=== PATIENT | male | born 1955 | race Two or more races ===

== ENCOUNTER 2018-06-09 19:32 | Inpatient (IN) | payer SELFPAY ==
[~2018-06-09] VITALS: Ht 170.2 cm; Wt 59.0 kg
[2018-06-09] MEDS ORDERED: KEPPRA750 MG ORAL (19:39)
[2018-06-09] MEDS ORDERED: CRESTOR20 MG ORAL (19:39)
[2018-06-09] MEDS ORDERED: AMLODIPINE BESYL5 MG ORAL (19:39)
[2018-06-09] MEDS ORDERED: TRAMADOL HCL50 MG ORAL (19:39)
[2018-06-09 19:40] VITALS: BP 116/84
--- NOTE | 2018-06-09 19:40 | NUR ---
ED Nurse Note: Pt MOMODarshan, coming from [facility] for pain and swelling on right knee, 11/01. Pain described as aching, non-radiating. Pt fell last saturday.
[2018-06-09 21:25] LABS: BASOPHILS % (AUTO) 1.3 % (0.0-2.0); EOSINOPHILS % (AUTO) 1.6 % (0.0-3.0); HEMATOCRIT 45.8 % (42.0-52.0); HEMOGLOBIN 15.7 G/DL (14.2-18.0); LYMPHOCYTES % (AUTO) 28.8 % (20.0-45.0); MEAN CORPUSCULAR VOLUME 92 FL (80-99); MONOCYTES % (AUTO) 7.7 % (1.0-10.0); NEUTROPHILS % (AUTO) 60.6 % (45.0-75.0); PLATELET COUNT 169 K/UL (150-450); RED CELL DISTRIBUTION WIDTH 11.4 % (11.6-14.8); WHITE BLOOD COUNT 9.2 K/UL (4.8-10.8)
[2018-06-09 21:26] LABS: INR 0.9 (0.9-1.1)
[2018-06-09 21:40] LABS: ALANINE AMINOTRANSFERASE 28 U/L (12-78); ALBUMIN 4.2 G/DL (3.4-5.0); ALKALINE PHOSPHATASE 75 U/L (46-116); ANION GAP 14 mmol/L (5-15); ASPARTATE AMINO TRANSFERASE 34 U/L (15-37); BILIRUBIN,TOTAL 0.8 MG/DL (0.2-1.0); BLOOD UREA NITROGEN 33 mg/dL (7-18); CALCIUM 10.5 MG/DL (8.5-10.1); CARBON DIOXIDE 32 MMOL/L (21-32); CHLORIDE 99 MMOL/L (98-107); CREATININE 1.2 MG/DL (0.55-1.30); SODIUM 145 MMOL/L (136-145)
[2018-06-09 21:41] LABS: POTASSIUM 2.5 MMOL/L (3.5-5.1)
--- NOTE | 2018-06-09 22:36 | Emergency Room Report ---
History of Present Illness General Chief Complaint: Multiple Trauma/Fall Source: Patient, Medical Record Present Illness HPI This patient presents from a intermediate facility. He is status post fall. He complains of pain in his right knee. He has no other complaints. Allergies: Coded Allergies: PENICILLINS (Verified Allergy, Unknown, 06/09/18) Patient History Past Medical History: see triage record, old chart reviewed, HTN, OK, CAD, dementia, seizures, other - HLP Social History: Denies: smoking, alcohol use, drug use Reviewed Nursing Documentation: PMH: Agreed; PSxH: Agreed Nursing Documentation-PMH Past Medical History: No History, Except For Hx Seizures: Yes Review of Systems All Other Systems: negative except mentioned in HPI Physical Exam Vital Signs Date Time Temp Pulse Resp B/P (MAP) Pulse Ox O2 Delivery O2 Flow Rate FiO2 06/09/18 19:34 97.9 94 16 116/84 96 Room Air Sp02 EP Interpretation: reviewed, normal General Appearance: no apparent distress, alert, GCS 15, non-toxic Head: normocephalic, atraumatic Eyes: bilateral eye normal inspection, bilateral eye PERRL ENT: hearing grossly normal, normal pharynx, no angioedema, normal voice Neck: full range of motion, supple/symm/no masses Respiratory: chest non-tender, lungs clear, normal breath sounds, no respiratory distress, no retraction, no accessory muscle use, speaking full sentences Cardiovascular #1: regular rate, rhythm, no edema Gastrointestinal: normal bowel sounds, non tender, soft, non-distended, no guarding, no rebound Rectal: deferred Musculoskeletal: back normal, tender - +pain w/ ROM of R. knee. +pain in R. knee with ROM of R. hip. R. leg externally rotated at the hip. Neurologic: alert, oriented x3, responsive, motor strength/tone normal, sensory intact, speech normal Psychiatric: judgement/insight normal, memory normal, mood/affect normal, no suicidal/homicidal ideation Skin: warm/dry, well hydrated, other - See RN skin exam Medical Decision Making Diagnostic Impression: Primary Impression: Hip fracture, right ER Course This patient has an intertrochanteric fracture of the right hip. The patient's pain and symptoms are in the right knee, however there is no evidence of any fracture in the right knee. I will obtain a CT given how tender the right knee is on examination. Regardless, this patient will be admitted for ORIF of his right hip intertrochanteric fracture. Laboratory Tests Test 06/09/18 20:50 White Blood Count 9.2 K/UL (4.8-10.8) Red Blood Count 5.00 M/UL (4.70-6.10) Hemoglobin 15.7 G/DL (14.2-18.0) Hematocrit 45.8 % (42.0-52.0) Mean Corpuscular Volume 92 FL (80-99) Mean Corpuscular Hemoglobin 31.5 PG (27.0-31.0) H Mean Corpuscular Hemoglobin Concent 34.3 G/DL (32.0-36.0) Red Cell Distribution Width 11.4 % (11.6-14.8) L Platelet Count 169 K/UL (150-450) Mean Platelet Volume 9.8 FL (6.5-10.1) Neutrophils (%) (Auto) 60.6 % (45.0-75.0) Lymphocytes (%) (Auto) 28.8 % (20.0-45.0) Monocytes (%) (Auto) 7.7 % (1.0-10.0) Eosinophils (%) (Auto) 1.6 % (0.0-3.0) Basophils (%) (Auto) 1.3 % (0.0-2.0) Prothrombin Time 9.5 SEC (9.30-11.50) Prothrombin Time INR 0.9 (0.9-1.1) PTT 29 SEC (23-33) Sodium Level 145 MMOL/L (136-145) Potassium Level 2.5 MMOL/L (3.5-5.1) *L Chloride Level 99 MMOL/L (98-107) Carbon Dioxide Level 32 MMOL/L (21-32) Anion Gap 14 mmol/L (5-15) Blood Urea Nitrogen 33 mg/dL (7-18) H Creatinine 1.2 MG/DL (0.55-1.30) Estimate Glomerular Filtration Rate > 60 mL/min (>60) Glucose Level 135 MG/DL (74-106) H Calcium Level 10.5 MG/DL (8.5-10.1) H Total Bilirubin 0.8 MG/DL (0.2-1.0) Aspartate Amino Transferase (AST) 34 U/L (15-37) Alanine Aminotransferase (ALT) 28 U/L (12-78) Alkaline Phosphatase 75 U/L (46-116) Total Protein 8.3 G/DL (6.4-8.2) H Albumin 4.2 G/DL (3.4-5.0) Globulin 4.1 g/dL Albumin/Globulin Ratio 1.0 (1.0-2.7) CT/MRI/US Diagnostic Results CT/MRI/US Diagnostic Results : Imaging Test Ordered: CT head Impression No acute findings. Specifically no intracranial bleed, mass effect or edema. See official report. Last Vital Signs Date Time Temp Pulse Resp B/P (MAP) Pulse Ox O2 Delivery O2 Flow Rate FiO2 06/09/18 19:34 97.9 94 16 116/84 96 Room Air Disposition: ADMITTED INPATIENT Condition: Serious Scripts Enoxaparin* (LOVENOX*) 40 Mg/0.4 Ml Inj 40 MG SUBQ DAILY for 7 Days, #10 UNITS Prov: Domenico Thomas MD 06/14/18 Carolyn Perry DO Jun 09, 2018 22:36
[2018-06-10] VITALS (15 sets, daily range): BP systolic 115–159; BP diastolic 69–88
--- NOTE | 2018-06-10 01:30 | NUR ---
ED Nurse Note: Report given to nursing staff in 3E. Pt resting comfortably, shows no signs of acute distress. Belongings list done. Pt sent up with air analysis technician.
--- NOTE | 2018-06-10 01:40 | NUR ---
Received report from REEMA Leyva RN. Admitted patient to room 309-2 via [facility]. Bed in low position, locked and side rails up x2, padded for seizure precautions. Oriented to room and call light. No complaints of pain at this time. SL in RH, intact. Will continue to monitor.
[2018-06-10] MEDS ORDERED: Morphine Sulfate 2mg/ml Inj(IV/IM USE ONLY) IVP PRN ×2 (02:15→06:15)
[2018-06-10] MEDS ORDERED: traMADol 50mg tab ORAL PRN ×2 (02:15→08:15)
[2018-06-10] MEDS: NovoLOG Insulin Flexpen SUBQ SCH ×4 (06:38→21:00)
[2018-06-10 07:46] LABS: ANION GAP 12 mmol/L (5-15); BLOOD UREA NITROGEN 35 mg/dL (7-18); CALCIUM 9.8 MG/DL (8.5-10.1); CARBON DIOXIDE 30 MMOL/L (21-32); CHLORIDE 103 MMOL/L (98-107); POTASSIUM 2.9 MMOL/L (3.5-5.1); SODIUM 145 MMOL/L (136-145)
[2018-06-10] MEDS ORDERED: Sodium Chloride for KCL Premix X 4hrs IV SCH (09:00)
--- NOTE | 2018-06-10 09:50 | Diagnostic Imaging Report ---
Indication: Rt knee pain Technique: Continuous helical imaging of the right knee was performed in the transaxial plane. Coronal 2-D reformatted images were also generated. Study obtained in a Siemens Sensation [address] total DLP: 356.22 mGycm CTD/vol: 15.26 mGy Comparison: None Findings: There is no evidence of an acute fracture or significant malalignment identified on this examination. The bones are diffusely osteopenic. There is narrowing of the joint space and osteophyte formation in all 3 compartments consistent with arthrosis. No definite joint effusion identified. Soft tissues are unremarkable. Impression: Negative examination for acute injury. Osteoarthritis. [facility] has communicated the preliminary results to the Emergency Department. Their findings are largely concordant with this report. The CT scanner at [facility] is accredited by the [employer] and the scans are performed using dose optimization techniques as appropriate to a performed exam including Automatic Exposure control.
--- NOTE | 2018-06-10 09:53 | Diagnostic Imaging Report ---
Indication: Hip pain Technique: continuous helical imaging in the transaxial plane was performed from the iliac crests to the pubic symphysis with attention to the right hip. Coronal 2-D reformatted images were also generated. Study obtained in a Siemens Sensation [address] total DLP: 302.47 mGycm CTD/vol: 9.38 mGy Comparison: None Findings: There is an acute comminuted fracture of the intertrochanteric aspect of the right hip. Slight impaction noted. Soft tissue swelling noted. No other acute fractures are seen. There are defects within portions of the right iliac bone which may be related to previous biopsy. Correlate clinically. Calcium noted within the iliac arteries and lower aorta. Bilateral inguinal hernias containing fat demonstrated. IMPRESSION: Acute intertrochanteric fracture of the right hip. [facility] has communicated the preliminary results to the Emergency Department. Their findings are largely concordant with this report. The CT scanner at [facility] is accredited by the [employer] and the scans are performed using dose optimization techniques as appropriate to a performed exam including Automatic Exposure control.
--- NOTE | 2018-06-10 10:00 | NUR ---
Social Service Note SW met with patient to address patient's refusal of surgery for right hip fracture. Patient is alert, oriented and verbally responsive. Patient spoke with his sister and MD and continues to refuse surgery. SW spoke with Susy Daley who states patient was ambulatory and used a crutch on right side. Patient prior history of prior surgery on right knee. If patient is unable to ambulate he would not be able to return to facility. Facility provided SW the phone number of his SW who [facility] Michelle Campos [phone]. CARLOS spoke with Michelle who states she will be able to meet with patient tomorrow to encourage patient to have surgery. Michelle is a SW through [employer]. Patient with a prior history of homelessness. Michelle is also unaware as to why patient's medi-cheo has been terminated. CARLOS will discuss with medi-cheo EW. Will monitor and follow up. Addendum: 06/11/18 at 0823 by TIGRE NATHAN SW requested for primary nurse to provide written materials to patient regarding procedure. Patient was thankful for information and would read information to make a decision.
--- NOTE | 2018-06-10 10:31 | Diagnostic Imaging Report ---
Indication: Headache. Trauma Technique: Contiguous 5 mm thick transaxial imaging of the head obtained in a Siemens Sensation [address] scanner. Soft tissue and bone windows generated. Automatic Exposure Control was utilized. Total Dose length Product (DLP): 1376.[address] Dose Index Volume (CTDIvol): 70.38 mGy Comparison: none Findings: There is moderate prominence of the ventricles, basal cisterns, and cerebral sulci consistent with atrophy. Moderate, nonspecific, white matter hypoattenuation is noted throughout the brain consistent with chronic small vessel disease. There is no midline shift, edema, acute hemorrhage, mass effect, or abnormal extra-axial fluid collections. There is an old right zygomatic arch fracture. Impression: No acute intracranial bleed, mass effect or edema. Moderate atrophy of the brain. Evidence of chronic small vessel disease involving white matter tracts. Old right zygomatic arch fracture The CT scanner at [facility] is accredited by the [employer] and the scans are performed using dose optimization techniques as appropriate to a performed exam including Automatic Exposure control.
--- NOTE | 2018-06-10 12:10 | Diagnostic Imaging Report ---
Indications: hip pain Findings: Two views of the right hip were obtained. There is an acute intertrochanteric fracture of the right hip. Some varus angulation noted. IMPRESSION: Acute right intertrochanteric fracture
--- NOTE | 2018-06-10 12:37 | Diagnostic Imaging Report ---
Indication: Pain 2 views of the right knee were obtained. Findings: Bones are osteopenic. There is no obvious acute fracture. There is an old fracture of the proximal tibia noted. No definite joint effusion identified. IMPRESSION: Limited evaluation showing no obvious acute injury
--- NOTE | 2018-06-10 12:39 | NUR ---
NURSE NOTES: received patient laying on bed alert oriented with out no distress. with R.hip fx. no neuro deficit previous surgery scarring noted on R.leg. Patient refused to sign consent for recommended surgery MD. sterling. PRAKASH Castro notified she called to the patient and talk to him he still refused to sign he stating he doesn't have no pain and he had surgery before as well and he doesn't want one now. social service consult recommended by Dr. shaheen Torres, RN came and spoke to the patient still refused. and psych consult requested Dr. Burton notified. Dr. Thomas and anesthesiologist aware the situation.
--- NOTE | 2018-06-10 12:44 | NUR ---
CASE MANAGEMENT:REVIEW 62 YR OLD MALE BIBA FROM [facility] CC: FELL ON SATURDAY. PAIN AND SWELLING SI: RT HIP FRACTURE 97.9 94 16 116/84 96% ON K-2.5 IS:KCL [address] HEAD XRAY HIP AND KNEE CT HIP AND KNEE : MED/SURG STATUS 3 EAST INTERQUAL CRITERIA MET
--- NOTE | 2018-06-10 12:44 | Diagnostic Imaging Report ---
Indication: pain Pelvic trauma and pain COMPARISON: 06/09/2018 Findings: Single AP view of the pelvis and two-view right hip was performed. There is no change. Acute right intertrochanteric hip fracture again demonstrated. There is an exostosis in the area just above the right anterior superior iliac spine. IMPRESSION: Acute right intertrochanteric hip fracture
--- NOTE | 2018-06-10 13:15 | NUR ---
RADIOLOGY DEPT., CHEST X-RAY DONE.-P.DYE
--- NOTE | 2018-06-10 13:16 | NUR ---
RADIOLOGY DEPT., X-RAYS OF PELVIS, HIP AND FEMUR COMPLETE BY TECH. EDDIE WILLIS.LUIGI
[2018-06-10] MEDS ORDERED: Bacitracin 50000 Units Vial ONE (16:40)
[2018-06-10] MEDS ORDERED: EPINEPHrine 1mg/1ml Amp ONE (16:40)
[2018-06-10] MEDS ORDERED: Bupivacaine 0.25% Inj 30ml INJ ONE (16:40)
--- NOTE | 2018-06-10 16:57 | NUR ---
NURSE NOTES: Dr. Burton cam and spoke to the patient Dr. jamison aware regarding psych evaluation and patient request to eat Dr. jamison stated he will come and talk to the patient. Potassium order completed. will continue to monitor.
[2018-06-10] MEDS ORDERED: Midazolam 2mg/2ml Inj ONE (18:44)
[2018-06-10] MEDS ORDERED: Propofol 200mg/20ml IV ONE (18:45)
--- NOTE | 2018-06-10 19:15 | History and Physical Report ---
DATE OF ADMISSION: 06/09/2018 HISTORY OF PRESENT ILLNESS: This is a 62-year-old male, who has been found to have a hip fracture. He is admitted to the hospital for subsequent management and care. The patient is unable to provide any clear history. Apparently, he fell at his assisted living facility. He is admitted to the hospital for surgical repair. PAST MEDICAL HISTORY: Notable for previous MO/CAD. He has also had chronic encephalopathy, history of sacral decubitus, status post previous skin grafting. He also has a seizure disorder. SURGERIES: As discussed above, notable for skin grafting. HOME MEDICATIONS: Include aspirin, Lipitor, metoprolol, carbamazepine, and Keppra. ALLERGIES: Penicillin. REVIEW OF SYSTEMS: Unreliable. PHYSICAL EXAMINATION: GENERAL: Reveals a 62-year-old male. VITAL SIGNS: Blood pressure 130/70, heart rate 84, and respirations . He is afebrile. HEENT: Unremarkable. LUNGS: Clear breath sounds bilaterally. ABDOMEN: Soft. EXTREMITIES: There is no edema. NEUROLOGIC: Nonfocal. LABORATORY DATA: CBC and BMP are both unremarkable except for potassium 2.5, which is now 2.9. Additional potassium has been given. Glucose 116. Coags are negative. The patient underwent imaging studies, which showed that he has evidence of an acute intertrochanteric fracture of the right hip. He also underwent an ECT, which was negative. IMPRESSION: 1. Right hip fracture. 2. Seizure disorder. On Keppra. 3. Hyperlipidemia. On Lipitor. 4. Hypertension. On Norvasc. 5. History of previous skin grafting for sacral decubitus. DISCUSSION: The patient is cleared for surgery. He has undergone a lab workup, which was negative. EKG shows normal sinus rhythm. I do not see a chest x-ray, however, I will discuss with nursing and await completion of chest x-ray. We may need to schedule a new chest x-ray if not done already. We will follow carefully. Domenico Thomas M.D. DR: STEPHANIE JOB#: [id number] CC:
--- NOTE | 2018-06-10 19:16 | NUR ---
NURSE NOTES: Patient transported to OR alert awake with out no distress.
--- NOTE | 2018-06-10 19:16 | NUR ---
HAND-OFF: Report given to GOLDEN Marcelo pt. off the unity.
--- NOTE | 2018-06-10 19:23 | Pre-Procedure Note/Attestation ---
Pre-Procedure Note/Attestation Complete Prior to Procedure Planned Procedure: right Procedure Narrative: Right hip nailing Indications for Procedure Pre-Operative Diagnosis: Right hip intertrochanteric fracture Attestation I attest that I discussed the nature of the procedure; its benefits; risks and complications; and alternatives (and the risks and benefits of such alternatives ), prior to the procedure, with the patient (or the patient's legal hostess party sales representative). I attest that, if there was a reasonable possibility of needing a blood transfusion, the patient (or the patient's legal hostess party sales representative) was given the [facility] standardized written summary, pursuant to the [place]omas [place] Blood Safety Act ([place] Health and Safety Code # 1645, as amended). I attest that I re-evaluated the patient just prior to the surgery and that there has been no change in the patient's H&P, except as documented below: Donald Ansari MD Jun 10, 2018 19:23
--- NOTE | 2018-06-10 19:30 | NUR ---
NURSE NOTES: Received report from GOLDEN Laura. Patient off the unit.
[2018-06-10] MEDS ORDERED: LR 1000ml ONE (20:00)
[2018-06-10] MEDS ORDERED: NS Irrig 1000ml ONE (20:00)
[2018-06-10] MEDS ORDERED: Sterile Water Irrig 1000ml IRRIG ONE (20:00)
[2018-06-10] MEDS ORDERED: fentaNYL 100 mcg/2 mL IV ONE (20:00)
--- NOTE | 2018-06-10 20:29 | Anethesia Preoperative Eval ---
Anesthesia Pre-op PMH/ROS General Date of Evaluation: Jun 10, 2018 Time of Evaluation: 19:20 Anesthesiologist: Ziggy ASA Score: ASA 3 Mallampati Score Class I : Soft palate, uvula, fauces, pillars visible Class II: Soft palate, uvula, fauces visible Class III: Soft palate, base of uvula visible Class IV: Only hard plate visible Mallampati Classification: Class II Surgeon: Elan Diagnosis: R hip Fx Surgical Procedure: ORIF of R hip Fx Anesthesia History: none Family History: no anesthesia problems Allergies: Coded Allergies: PENICILLINS (Verified Allergy, Unknown, 06/09/18) Patient NPO?: Yes NPO Date: Jun 10, 2018 NPO Time: 829 Past Medical History Cardiovascular: Reports: HTN; Denies: CAD, MO, valve dz, arrhythmia, other Pulmonary: Denies: asthma, COPD, AMADEO, other Gastrointestinal/Genitourinary: Reports: GERD Neurologic/Psychiatric: Reports: depression/anxiety, other - seizers disorder; Denies: dementia, CVA, TIA Endocrine: Reports: hypothyroidism; Denies: DM, steroids, other HEENT: Denies: cataract (L), cataract (R), glaucoma, ASSINIBOINE AND [place] (L), ASSINIBOINE AND [place] (R), other Hematology/Immune: Denies: anemia, DVT, bleeding disorder, other Musculoskeletal/Integumentary: Reports: DJD; Denies: OA, RA, DDD, edema, other Other: other - malnouyrished PMH Narrative: as above PSxH Narrative: Pelvic Fx Anesthesia Pre-op Phys. Exam Physician Exam Last Vital Signs Date Time Temp Pulse Resp B/P (MAP) Pulse Ox O2 Delivery O2 Flow Rate FiO2 06/10/18 16:53 98.2 73 19 115/77 (90) 97 06/10/18 09:02 Room Air Constitutional: NAD Neurologic: CN 2-12 intact Cardiovascular: RRR, no M/R/G Respiratory: CTA Gastrointestinal: S/NT/ND Airway Exam Mallampati Score: Class II MO: limited Neck: stiff ROM: limited Teeth: missing Dentures: no upper, no lower Anesthesia Pre-op A/P Labs Hematology Test 06/09/18 20:50 White Blood Count 9.2 K/UL (4.8-10.8) Red Blood Count 5.00 M/UL (4.70-6.10) Hemoglobin 15.7 G/DL (14.2-18.0) Hematocrit 45.8 % (42.0-52.0) Mean Corpuscular Volume 92 FL (80-99) Mean Corpuscular Hemoglobin 31.5 PG (27.0-31.0) H Mean Corpuscular Hemoglobin Concent 34.3 G/DL (32.0-36.0) Red Cell Distribution Width 11.4 % (11.6-14.8) L Platelet Count 169 K/UL (150-450) Mean Platelet Volume 9.8 FL (6.5-10.1) Neutrophils (%) (Auto) 60.6 % (45.0-75.0) Lymphocytes (%) (Auto) 28.8 % (20.0-45.0) Monocytes (%) (Auto) 7.7 % (1.0-10.0) Eosinophils (%) (Auto) 1.6 % (0.0-3.0) Basophils (%) (Auto) 1.3 % (0.0-2.0) Coagulation Test 06/09/18 20:50 Prothrombin Time 9.5 SEC (9.30-11.50) Prothromb Time International Ratio 0.9 (0.9-1.1) Activated Partial Thromboplast Time 29 SEC (23-33) Chemistry Test 06/09/18 20:50 06/10/18 06:50 Sodium Level 145 MMOL/L (136-145) 145 MMOL/L (136-145) Potassium Level 2.5 MMOL/L (3.5-5.1) *L 2.9 MMOL/L (3.5-5.1) L Chloride Level 99 MMOL/L (98-107) 103 MMOL/L (98-107) Carbon Dioxide Level 32 MMOL/L (21-32) 30 MMOL/L (21-32) Anion Gap 14 mmol/L (5-15) 12 mmol/L (5-15) Blood Urea Nitrogen 33 mg/dL (7-18) H 35 mg/dL (7-18) H Creatinine 1.2 MG/DL (0.55-1.30) 1.0 MG/DL (0.55-1.30) Estimat Glomerular Filtration Rate > 60 mL/min (>60) > 60 mL/min (>60) Glucose Level 135 MG/DL (74-106) H 116 MG/DL (74-106) H Calcium Level 10.5 MG/DL (8.5-10.1) H 9.8 MG/DL (8.5-10.1) Total Bilirubin 0.8 MG/DL (0.2-1.0) Aspartate Amino Transf (AST/SGOT) 34 U/L (15-37) Alanine Aminotransferase (ALT/SGPT) 28 U/L (12-78) Alkaline Phosphatase 75 U/L (46-116) Total Protein 8.3 G/DL (6.4-8.2) H Albumin 4.2 G/DL (3.4-5.0) Globulin 4.1 g/dL Albumin/Globulin Ratio 1.0 (1.0-2.7) Risk Assessment & Plan Assessment: ASA 3 Plan: SAB vs GA Status Change Before Surgery: No Pre-Antibiotics Drug: Ancef 2gr. Given Within 1 Hr of Incision: Yes Time Given: 19:56 Erik Trinh MD Jun 10, 2018 20:29
[2018-06-10] MEDS ORDERED: fentaNYL 100 mcg/2 mL IV PRN (20:30)
[2018-06-10] MEDS ORDERED: LR 1000ml 1,000 ML IVLG SCH (20:30)
[2018-06-10] MEDS ORDERED: DiphenhydrAMINE 50mg/ml Inj IVP PRN (20:30)
[2018-06-10] MEDS: Atorvastatin 80mg tab ORAL SCH (21:00)
--- NOTE | 2018-06-10 21:04 | Immediate Post-Op Evaluation ---
Immediate Post-Op Evalulation Immediate Post-Op Evalulation Procedure: R hip Fx ORIF Date of Evaluation: Jun 10, 2018 Time of Evaluation: 21:03 IV Fluids: 1000 Blood Products: none Estimated Blood Loss: 100 Urinary Output: 100 Blood Pressure Systolic: 142 Blood Pressure Diastolic: 69 Pulse Rate: 84 Respiratory Rate: 20 O2 Sat by Pulse Oximetry: 99 Temperature (Fahrenheit): 97.5 Pain Score (1-10): 1 Nausea: No Vomiting: No Complications none Patient Status: awake, patent, none Hydration Status: adequate Erik Trinh MD Jun 10, 2018 21:04
[2018-06-10] MEDS: D5 1/2NS w/KCl 20mEq 1,000 ML IV SCH (21:37)
[2018-06-10] MEDS ORDERED: HYDROcodone/Acetamin 5/325 tab ORAL PRN (21:45)
--- NOTE | 2018-06-10 22:15 | NUR ---
NURSE NOTES: Received patient back from PACU. Received report from GOLDEN Barnhart. Patient alert, oriented. Dressing x3 on right hip, mid and lower thigh intact, dry, icepack on. Cade catheter draining well. VSS. Denies pain at this time. O2 2L via NC. Bed in low position, side rails up x2, padded, call light within reach. Will continue to monitor.
--- NOTE | 2018-06-10 22:58 | Consultation ---
History of Present Illness General Chief Complaint: Multiple Trauma/Fall Present Illness Allergies: Coded Allergies: PENICILLINS (Verified Allergy, Unknown, 06/09/18) Medication History Scheduled Amlodipine Besylate* (Amlodipine Besylate*), 5 MG ORAL DAILY, (Reported) Rosuvastatin Calcium* (Crestor*), 20 MG ORAL DAILY, (Reported) Scheduled PRN Tramadol Hcl* (Ultram*), 50 MG ORAL Q6H PRN for For Pain, (Reported) Miscellaneous Medications Levetiracetam (Keppra), 750 MG ORAL, (Reported) Patient History Healthcare decision maker Resuscitation status Do Not Resuscitate Advanced Directive on File Physical Exam Last 24 Hour Vital Signs Date Time Temp Pulse Resp B/P (MAP) Pulse Ox O2 Delivery O2 Flow Rate FiO2 06/10/18 21:53 98.0 66 13 120/81 98 Nasal Cannula 3 06/10/18 21:40 66 15 124/81 98 Nasal Cannula 3 06/10/18 21:30 64 13 127/86 98 Nasal Cannula 3 06/10/18 21:20 76 15 127/86 98 Nasal Cannula 3 06/10/18 21:11 79 12 135/88 100 Nasal Cannula 3 06/10/18 21:06 86 18 159/88 100 Simple Mask 6 06/10/18 21:04 84 20 99 06/10/18 21:01 97.2 88 17 142/69 97 Simple Mask 6 06/10/18 16:53 98.2 73 19 115/77 (90) 97 06/10/18 12:00 98.6 82 19 124/86 (99) 97 06/10/18 09:05 81 133/82 06/10/18 09:02 Room Air 06/10/18 09:00 Room Air 06/10/18 08:00 97.2 71 20 126/81 (96) 97 06/10/18 04:00 97.4 83 20 127/87 (100) 97 06/10/18 01:45 97.4 77 20 128/87 (101) 97 06/10/18 01:38 98.1 81 20 133/82 98 Room Air Intake and Output 06/09/18 06/10/18 19:00 07:00 # Voids 2 Laboratory Tests Test 06/10/18 06:50 Sodium Level 145 MMOL/L (136-145) Potassium Level 2.9 MMOL/L (3.5-5.1) L Chloride Level 103 MMOL/L (98-107) Carbon Dioxide Level 30 MMOL/L (21-32) Anion Gap 12 mmol/L (5-15) Blood Urea Nitrogen 35 mg/dL (7-18) H Creatinine 1.0 MG/DL (0.55-1.30) Estimat Glomerular Filtration Rate > 60 mL/min (>60) Glucose Level 116 MG/DL (74-106) H Calcium Level 9.8 MG/DL (8.5-10.1) Height (Feet): 5 Height (Inches): 7.00 Weight (Pounds): 130 Medications Current Medications Medications (Trade) Dose Ordered Sig/Coleen Route PRN Reason Start Time Stop Time Status Last Admin Dose Admin Acetaminophen/ Hydrocodone Bitart ([place] 5/325) 2 tab Q6H PRN ORAL Severe Pain (Pain Scale 7-10) 06/10/18 21:45 06/17/18 21:44 UNV Amlodipine Besylate (Norvasc) 5 mg DAILY ORAL 06/10/18 09:00 07/10/18 08:59 06/10/18 09:05 Atorvastatin Calcium (Lipitor) 80 mg BEDTIME ORAL 06/10/18 21:00 07/10/18 20:59 Dextrose (Dextrose 50%) 25 ml Q30M PRN IV Hypoglycemia 06/10/18 02:15 07/10/18 02:14 Dextrose (Dextrose 50%) 50 ml Q30M PRN IV Hypoglycemia 06/10/18 02:15 07/10/18 02:14 Dextrose/ Electrolytes 1,000 ml @ 75 mls/hr [id number] IV 06/10/18 11:30 07/10/18 11:29 06/10/18 14:53 Dextrose/ Electrolytes 1,000 ml @ 75 mls/hr [id number] IV 06/10/18 21:37 07/10/18 21:36 UNV Diphenhydramine HCl (Benadryl) 25 mg Q15M PRN IVP Itching 06/10/18 20:30 06/11/18 03:00 Fentanyl Citrate (Sublimaze 100 mcg/2 mL) 25 mcg Q10M PRN IV Moderate Pain (Pain Scale 4-6) 06/10/18 20:30 06/11/18 03:00 Hydromorphone HCl (Dilaudid) 2 mg Q3H PRN SUBQ Severe Pain (Pain Scale 7-10) 06/10/18 21:45 06/17/18 21:44 UNV Insulin Aspart (NovoLOG) BEFORE MEALS AND HS SUBQ 06/10/18 06:30 07/10/18 06:29 06/10/18 17:51 Levetiracetam (Keppra) 750 mg DAILY ORAL 06/10/18 09:00 07/10/18 08:59 06/10/18 09:04 Morphine Sulfate (Morphine Sulfate) 2 mg Q4H PRN IVP Severe Pain (Pain Scale 7-10) 06/10/18 06:15 06/17/18 02:14 Ondansetron HCl (Zofran) 4 mg Q1H PRN IVP Nausea & Vomiting 06/10/18 20:30 06/11/18 03:00 Tramadol HCl (Ultram) 50 mg Q6H PRN ORAL For Pain 06/10/18 08:15 06/17/18 02:14 Assessment/Plan Assessment/Plan the pt has capacity to make decisions. the pt was able to understand and discuss in a rational manner. Homar Burton MD Jun 10, 2018 22:58
--- NOTE | 2018-06-10 23:30 | NUR ---
NURSE NOTES: Patient taking po fluids and tolerating well. Attempted to give Lipitor, patient refused. Checked blood sugar: 133 mg/dl. Attempted to give Novolog per sliding scale, patient refused. Will continue to monitor.
--- NOTE | 2018-06-10 23:40 | NUR ---
NURSE NOTES: Called Dr. Ansari to inquire about post-op Ancef. Dr. Ansari stated no additional doses.
[2018-06-11] VITALS (8 sets, daily range): BP systolic 106–121; BP diastolic 63–82
--- NOTE | 2018-06-11 02:45 | Consultation ---
DATE OF CONSULTATION: 06/10/2018 ORTHOPEDIC CONSULTATION CONSULTING PHYSICIAN: Donald Ansari M.D. REQUESTING PHYSICIAN: Domenico Thomas M.D. DIAGNOSIS: Right hip intertrochanteric hip fracture. BACKGROUND: The patient is a 62-year-old gentleman who is pleasantly confused and reportedly lives at an assisted living place. He slipped and fell. He sustained a right hip fracture. He is not able to bear weight and brought into the emergency department where the hip fracture was diagnosed. PAST MEDICAL HISTORY: Significant for coronary artery disease and previous myocardial infarction. He has had skin grafting for right lower extremity from previous fracture. He has deformity of the right leg and skin grafting from the right thigh. He has a history of encephalopathy, decubitus ulcers, and seizure disorder. MEDICATIONS: He takes aspirin, Lipitor, metoprolol, Keppra, and carbamazepine. ALLERGIES: He has allergies to penicillin. PHYSICAL EXAMINATION: GENERAL: He is in no distress. EXTREMITIES: He has minimal pain with log rolling of the right lower extremity. There is some foreshortening of the limb, though it is difficult to ascertain because of the curve deformity of the right leg from previous severe trauma. There are multiple skin graft sites that are well healed. RADIOGRAPHS: AP pelvis and right hip reveal an intertrochanteric displaced hip fracture. The patient is a 62-year-old gentleman, status post fall with a right hip intertrochanteric displaced hip fracture. I have recommended hip nailing. All risks were reviewed in great detail. He understands that surgery may risk because of anesthesia and other stresses on the body. He further understands that not having surgery would mean not getting out of bed and potentially risking blood clot and as well. All risks were again reviewed in great detail and he consented to the procedure. We will proceed to the operating room when available. Thank you for the opportunity to consult. Donald Ansari M.D. DR: ELISSA JOB#: [id number] CC:
[2018-06-11] MEDS: D5 1/2NS w/KCl 20mEq 1,000 ML IV SCH (03:12)
--- NOTE | 2018-06-11 03:25 | NUR ---
NURSE NOTES: Noted small amount of blood on front of patient's gown. Attempted to assess, patient pushed my hands off and refused repeatedly. Attempted again a few minutes later, patient had pulled urinary catheter out. Charge nurse Zackary, also at bedside assessing. Cade urinary output 550 cc.
--- NOTE | 2018-06-11 06:07 | NUR ---
NURSE NOTES: Lab here, patient refused lab draw. Also refused glucose check. Lab will attempt later in am.
[2018-06-11] MEDS: NovoLOG Insulin Flexpen SUBQ SCH ×5 (06:30→21:23)
--- NOTE | 2018-06-11 06:55 | Pulmonology Progress Note ---
Assessment/Plan Assessment/Plan 1. Right hip fracture. S/p ORIF 2. Seizure disorder. On Keppra. 3. Hyperlipidemia. On Lipitor. 4. Hypertension. On Norvasc. 5. History of previous skin grafting for sacral decubitus. DISCUSSION: POD s/p surgery. I will follow carefully. Start PT/OT DC planning DVT prophylaxis Check AM labs Subjective Interval Events: None new; S/p ORIF; labs pending this AM Constitutional: Reports: no symptoms HEENT: Repors: no symptoms Respiratory: Reports: no symptoms Cardiovascular: Reports: no symptoms Gastrointestinal/Abdominal: Reports: no symptoms Genitourinary: Reports: no symptoms Neurologic: Reports: no symptoms Allergies: Coded Allergies: PENICILLINS (Verified Allergy, Unknown, 06/09/18) Objective Last 24 Hour Vital Signs Date Time Temp Pulse Resp B/P (MAP) Pulse Ox O2 Delivery O2 Flow Rate FiO2 06/11/18 04:00 98.4 75 17 109/64 (79) 97 06/11/18 02:45 78 17 106/63 (77) 06/11/18 01:45 72 16 106/65 (79) 96 06/11/18 00:45 98.2 70 20 110/67 (81) 96 06/10/18 23:45 98.2 71 20 115/72 (86) 100 06/10/18 22:45 97.8 75 19 116/71 (86) 100 06/10/18 22:15 97.8 69 18 124/73 (90) 99 06/10/18 22:15 Room Air 06/10/18 22:15 69 06/10/18 21:53 98.0 66 13 120/81 98 Nasal Cannula 3 06/10/18 21:40 66 15 124/81 98 Nasal Cannula 3 06/10/18 21:30 64 13 127/86 98 Nasal Cannula 3 06/10/18 21:20 76 15 127/86 98 Nasal Cannula 3 06/10/18 21:11 79 12 135/88 100 Nasal Cannula 3 06/10/18 21:06 86 18 159/88 100 Simple Mask 6 06/10/18 21:04 84 20 99 06/10/18 21:01 97.2 88 17 142/69 97 Simple Mask 6 06/10/18 16:53 98.2 73 19 115/77 (90) 97 06/10/18 12:00 98.6 82 19 124/86 (99) 97 06/10/18 09:05 81 133/82 06/10/18 09:02 Room Air 06/10/18 09:00 Room Air 06/10/18 08:00 97.2 71 20 126/81 (96) 97 Intake and Output 06/10/18 06/11/18 18:59 06:59 Intake Total 1240 ml 1005 ml Output Total 350 ml 700 ml Balance 890 ml 305 ml Intake Oral 240 ml 480 ml IV Total 1000 ml 525 ml Output Urine Total 250 ml 700 ml Estimated Blood Loss 100 ml # Voids 1 General Appearance: no acute distress HEENT: normocephalic Respiratory/Chest: chest wall non-tender, lungs clear Cardiovascular: normal peripheral pulses, normal rate Abdomen: normal bowel sounds, soft, non tender Current Medications Medications (Trade) Dose Ordered Sig/Coleen Route PRN Reason Start Time Stop Time Status Last Admin Dose Admin Acetaminophen/ Hydrocodone Bitart ([place] 5/325) 2 tab Q6H PRN ORAL Severe Pain (Pain Scale 7-10) 06/10/18 21:45 06/17/18 21:44 Amlodipine Besylate (Norvasc) 5 mg DAILY ORAL 06/10/18 09:00 07/10/18 08:59 06/10/18 09:05 Atorvastatin Calcium (Lipitor) 80 mg BEDTIME ORAL 06/10/18 21:00 07/10/18 20:59 Dextrose (Dextrose 50%) 25 ml Q30M PRN IV Hypoglycemia 06/10/18 02:15 07/10/18 02:14 Dextrose (Dextrose 50%) 50 ml Q30M PRN IV Hypoglycemia 06/10/18 02:15 07/10/18 02:14 Dextrose/ Electrolytes 1,000 ml @ 75 mls/hr [id number] IV 06/10/18 21:37 07/10/18 21:36 06/11/18 03:12 Hydromorphone HCl (Dilaudid) 2 mg Q3H PRN SUBQ Severe Breakthru Pain (>7) 06/11/18 06:30 06/17/18 21:44 Insulin Aspart (NovoLOG) BEFORE MEALS AND HS SUBQ 06/10/18 06:30 07/10/18 06:29 06/10/18 17:51 Levetiracetam (Keppra) 750 mg DAILY ORAL 06/10/18 09:00 07/10/18 08:59 06/10/18 09:04 Tramadol HCl (Ultram) 50 mg Q6H PRN ORAL For Pain 06/10/18 08:15 06/17/18 02:14 Domenico Thomas MD Jun 11, 2018 06:55
--- NOTE | 2018-06-11 07:30 | NUR ---
NURSE NOTES: Received patient laying on bed with out no distress upset and reported "it makes it worst" refused to eat, surgical site dressing removed, pt verbalized he removed it, RN attempt to put new dressing patient refused will attempt again. refused lab draw for the second time, refused breakfast RN encouraged pt. verbalized "I will just lay in here and " RN assure patient if the intervention allowed and done as planned it will reduce the discomfort pt requested to be left alone will continue to encourage to cooperate once patient calm down.
--- NOTE | 2018-06-11 07:43 | NUR ---
HAND-OFF: Report given to GOLDEN Laura.
--- NOTE | 2018-06-11 08:42 | Brief Operative Note ---
Immediate Post Operative Note Operative Note Pre-op Diagnosis: Right hip intertrochanteric fracture Procedure: Right hip nailing Post-op Diagnosis: Same Post-op Diagnosis: same as pre-op Findings: consistent w/pre-op dx studies Surgeon: Elan Anesthesia: general Specimen: none Complications: none Condition: stable Fluids: 100 ml Estimated Blood Loss: minimal Drains: none Implant(s) used?: Yes Donald Ansari MD Jun 11, 2018 08:42
[2018-06-11] MEDS: Enoxaparin 40mg Inj SUBQ SCH (09:32)
--- NOTE | 2018-06-11 11:24 | NUR ---
NURSE NOTES: Dr. Thomas aware regarding patient refused all the medication, FC removal and nursing care stated Dr. Burton will come and see the patient. Patient able to void 200ml after he pull out FC urine color stained with blood. RN encouraged fluid and food intake able to some fluid refused food still and allewed the charge nurse to put the surgical dressing back patient verbalized "I will take the dressing off". Pt. refused PT risk and benefit explained his personal social science research assistant in the room encouraged patient as well still refused will continue to monitor.
--- NOTE | 2018-06-11 12:48 | NUR ---
NURSE NOTES: Patient refused accu chk but agreed to eat lunch and allowed BRIDGE SAW OPERATOR to obtain VS. VS stable. No post op prophylaxis antibiotics ordered Dr. Ansari notified including patient possible contamination of the surgical site by taking dressing off and touching surgical site. resist for RN to put dressing back on it took a while to get stacia agree to apply new dressing.
--- NOTE | 2018-06-11 13:01 | NUR ---
NURSE NOTES: No post operative prophylaxis antibiotics required per Dr. Ansari.
--- NOTE | 2018-06-11 16:15 | NUR ---
NURSE NOTES: Patient able to ambulate with PT and able to seat on chair for 1hr transferred to bed safely surgical dressing intact patient reported pain on his genital area caused by forced FC removal getting better. urine color yellow no blood mix urine any more neuro check stable will continue to monitor.
--- NOTE | 2018-06-11 16:21 | Diagnostic Imaging Report ---
INDICATION: Pain, intraoperative TECHNIQUE: Intraoperative imaging Fluoroscopy time: 33.2 seconds Total dose: By [id number] mGym2 Total number of images: 4 COMPARISON: CT scan dated 06/09/2018 FINDINGS: Intraoperative images document surgical repair of previously demonstrated intertrochanteric right hip fracture using medullary rafael and compression screw IMPRESSION: Intraoperative imaging, as described
--- NOTE | 2018-06-11 16:55 | NUR ---
P.T Note: late entry [id number] Pt refused to participate with P.T evaluation this AM. Will reattempt this this PM.
--- NOTE | 2018-06-11 17:30 | Operative Note - Dictated ---
DATE OF OPERATION: 06/10/2018 SURGEON: Donald Ansari M.D. FUNCTIONAL SUPPORT ANALYST: None. ANESTHESIA: General. COMPLICATIONS: None. ANTIBIOTICS: Ancef. PREOPERATIVE DIAGNOSIS: Right intertrochanteric hip fracture. POSTOPERATIVE DIAGNOSIS: Right intertrochanteric hip fracture. PROCEDURE PERFORMED: Right hip short nailing using Rajinder gamma nail with single hip and distal interlocking screw, static screw. BACKGROUND: The patient slipped and fell. He sustained above injury.. All risks, benefits, and alternatives to surgical intervention were discussed in great detail. Risks included, but were not limited to, bleeding, infection, neurovascular injury, need for additional surgical intervention, failure of pain relief, arthrofibrosis, complications of anesthesia, blood clots, stroke, heart attack, and potentially . He understood these risks, amongst others, and consent was signed. PROCEDURE IN DETAIL: The patient was brought into the operating room, placed supine on the operating room table. The right hip was correctly verified for surgical site and prepped and draped in standard sterile fashion. With all bony prominences appropriately padded, with gentle traction, the fracture was reduced into anatomic alignment and confirmed by fluoroscopy. An incision was created proximal and in line with the femur and the greater trochanteric tip starting point was obtained. It was over-drilled and a short 10 secured into position. A center/center position of the hip screw was verified by fluoroscopy. The fracture was compressed and a drop lock screw was utilized and loosened enough to allow compression with weightbearing. A distal interlocking static screw was secured into position. Fluoroscopy confirmed appropriate fracture reduction and hardware placement. The wounds were copiously irrigated and reapproximated using 0 Vicryl, 2-0 Vicryl, and Monocryl for skin. Steri-Strips were used over Mastisol. Dry sterile dressings were applied. There were no complications. I attest I performed the entire operation. He was transferred to recovery in good condition. Donald Ansari M.D. DR: Marily JOB#: [id number] CC:
--- NOTE | 2018-06-11 19:30 | NUR ---
NURSE NOTES: Pt resting in bed, AAOX3. Denies pain at this time, call light w/in reach.
--- NOTE | 2018-06-11 19:43 | NUR ---
HAND-OFF: Report given to GOLDEN Lemus patient alert awake with out no distress call light, table and urinal with in reach bed on low position locked.
[2018-06-11] MEDS: Atorvastatin 80mg tab ORAL SCH ×2 (21:00→21:24)
--- NOTE | 2018-06-11 21:30 | NUR ---
NURSE NOTES: Pt refused Lipitor and Sliding Scale Insulin coverage, HS BG 119. Pt wanted to get up to the bathroom by himself without walker, refused to be assisted. Pt is aggressive and uncooperative. Oriented to self and place at this time. Primary nurse, Glo stayed with patient for 20 minutes until he's more agreeable to be assisted back to bed. Frequent monitoring implemented. Call light w/in reach.
[2018-06-12] VITALS: BP 116/84
[2018-06-12 04:00] VITALS: BP 105/73
[2018-06-12] MEDS: NovoLOG Insulin Flexpen SUBQ SCH ×4 (06:29→20:49)
[2018-06-12 07:43] LABS: EOSINOPHILS % (AUTO) 2.5 % (0.0-3.0); HEMATOCRIT 34.3 % (42.0-52.0); HEMOGLOBIN 11.7 G/DL (14.2-18.0); LYMPHOCYTES % (AUTO) 29.6 % (20.0-45.0); MEAN CORPUSCULAR VOLUME 92 FL (80-99); MONOCYTES % (AUTO) 7.9 % (1.0-10.0); NEUTROPHILS % (AUTO) 58.9 % (45.0-75.0); PLATELET COUNT 149 K/UL (150-450); RED BLOOD COUNT 3.73 M/UL (4.70-6.10); RED CELL DISTRIBUTION WIDTH 11.2 % (11.6-14.8); WHITE BLOOD COUNT 8.4 K/UL (4.8-10.8)
--- NOTE | 2018-06-12 07:44 | NUR ---
HAND-OFF: Report given to GOLDEN Chavez.
[2018-06-12 07:53] LABS: ANION GAP 10 mmol/L (5-15); BLOOD UREA NITROGEN 15 mg/dL (7-18); CARBON DIOXIDE 30 MMOL/L (21-32); CHLORIDE 99 MMOL/L (98-107); CREATININE 0.7 MG/DL (0.55-1.30); SODIUM 138 MMOL/L (136-145)
[2018-06-12 07:54] LABS: POTASSIUM 2.5 MMOL/L (3.5-5.1)
[2018-06-12 08:00] VITALS: BP 118/75
--- NOTE | 2018-06-12 08:00 | NUR ---
NURSE NOTES: Received report from Mary FRANKS. pt a/a/ox4 laying in bed with no signs of distress or other issues at this time. pt on a CCHO diet tolerating well with no signs of n/v. surgical dressing dry and intact. IV on the right FA gauge#22 heplock. call light within reach, bed in lowest position. bed rales up x2. I will f/u as needed.
--- NOTE | 2018-06-12 08:30 | NUR ---
NURSE NOTES: Iris FRANKS CN informed that pt's K:2.5. Iris FRANKS CN called Dr. Thomas to inform of the critical lab value. I will f/u as needed.
[2018-06-12] MEDS: Enoxaparin 40mg Inj SUBQ SCH (09:38)
[2018-06-12 12:00] VITALS: BP 117/79
--- NOTE | 2018-06-12 12:35 | 48 Hour Post Anesthesia Eval ---
Post Anesthesia Evaluation Procedure: R hip Fx ORIF Date of Evaluation: Jun 12, 2018 Time of Evaluation: 12:34 Blood Pressure Systolic: 115 0: 76 Pulse Rate: 68 Respiratory Rate: 20 Temperature (Fahrenheit): 97.6 O2 Sat by Pulse Oximetry: 98 Airway: patent Nausea: No Vomiting: No Pain Intensity: 2 Cardiopulmonary Status: stable Mental Status/LOC: patient returned to baseline Follow-up Care/Observations: n/a Post-Anesthesia Complications: none Follow-up care needed: N/A Erik Trinh MD Jun 12, 2018 12:35
--- NOTE | 2018-06-12 12:53 | Pulmonology Progress Note ---
Assessment/Plan Assessment/Plan 1. Right hip fracture. S/p ORIF 2. Seizure disorder. On Keppra. 3. Hyperlipidemia. On Lipitor. 4. Hypertension. On Norvasc. 5. History of previous skin grafting for sacral decubitus. DISCUSSION: s/p surgery. I will follow carefully. Continue PT/OT DC planning DVT prophylaxis replace k Subjective Interval Events: none new; k low Constitutional: Reports: no symptoms HEENT: Repors: no symptoms Respiratory: Reports: no symptoms Cardiovascular: Reports: no symptoms Gastrointestinal/Abdominal: Reports: no symptoms Allergies: Coded Allergies: PENICILLINS (Verified Allergy, Unknown, 06/09/18) Objective Last 24 Hour Vital Signs Date Time Temp Pulse Resp B/P (MAP) Pulse Ox O2 Delivery O2 Flow Rate FiO2 06/12/18 12:35 68 20 98 06/12/18 09:37 77 118/75 06/12/18 09:00 Room Air 06/12/18 08:00 98.0 77 19 118/75 (89) 97 06/12/18 04:00 98.0 80 20 105/73 (84) 97 06/12/18 00:00 99.0 95 17 116/84 (95) 99 06/11/18 21:00 Room Air 06/11/18 20:00 99.7 93 18 113/75 (88) 97 06/11/18 16:27 98.0 83 17 121/82 (95) 100 Intake and Output 06/11/18 06/12/18 18:59 06:59 Intake Total 120 ml Output Total 400 ml Balance 120 ml -400 ml Intake Oral 120 ml Output Urine Total 400 ml # Voids 1 General Appearance: no acute distress HEENT: normocephalic Respiratory/Chest: chest wall non-tender, lungs clear Cardiovascular: normal peripheral pulses, normal rate Microbiology Date/Time Source Procedure Growth Status 06/10/18 07:00 Nasal Nares MRSA Culture - Final NO METHICILLIN RESISTANT STAPH AUREUS... Complete Laboratory Tests 06/12/18 06:09: White Blood Count 8.4, Red Blood Count 3.73L, Hemoglobin 11.7L, Hematocrit 34.3L , Mean Corpuscular Volume 92, Mean Corpuscular Hemoglobin 31.4H, Mean Corpuscular Hemoglobin Concent 34.2, Red Cell Distribution Width 11.2L, Platelet Count 149L, Mean Platelet Volume 9.0, Neutrophils (%) (Auto) 58.9, Lymphocytes (%) (Auto) 29.6, Monocytes (%) (Auto) 7.9, Eosinophils (%) (Auto) 2.5, Basophils (%) (Auto) 1.0, Sodium Level 138, Potassium Level 2.5*L, Chloride Level 99, Carbon Dioxide Level 30, Anion Gap 10, Blood Urea Nitrogen 15 , Creatinine 0.7, Estimat Glomerular Filtration Rate > 60, Glucose Level 106, Calcium Level 9.0 Current Medications Medications (Trade) Dose Ordered Sig/Coleen Route PRN Reason Start Time Stop Time Status Last Admin Dose Admin Acetaminophen/ Hydrocodone Bitart ([place] 5/325) 2 tab Q6H PRN ORAL Severe Pain (Pain Scale 7-10) 06/10/18 21:45 06/17/18 21:44 Amlodipine Besylate (Norvasc) 5 mg DAILY ORAL 06/10/18 09:00 07/10/18 08:59 06/12/18 09:37 Atorvastatin Calcium (Lipitor) 80 mg BEDTIME ORAL 06/10/18 21:00 07/10/18 20:59 Dextrose (Dextrose 50%) 25 ml Q30M PRN IV Hypoglycemia 06/10/18 02:15 07/10/18 02:14 Dextrose (Dextrose 50%) 50 ml Q30M PRN IV Hypoglycemia 06/10/18 02:15 07/10/18 02:14 Enoxaparin Sodium (Lovenox) 40 mg DAILY SUBQ 06/11/18 09:00 07/11/18 08:59 06/12/18 09:38 Hydromorphone HCl (Dilaudid) 2 mg Q3H PRN SUBQ Severe Breakthru Pain (>7) 06/11/18 06:30 06/17/18 21:44 Insulin Aspart (NovoLOG) BEFORE MEALS AND HS SUBQ 06/10/18 06:30 07/10/18 06:29 06/12/18 06:29 Levetiracetam (Keppra) 750 mg DAILY ORAL 06/10/18 09:00 07/10/18 08:59 06/12/18 09:36 Tramadol HCl (Ultram) 50 mg Q6H PRN ORAL For Pain 06/10/18 08:15 06/17/18 02:14 Domenico Thomas MD Jun 12, 2018 12:53
[2018-06-12 14:49] LABS: ANION GAP 6 mmol/L (5-15); BLOOD UREA NITROGEN 17 mg/dL (7-18); CALCIUM 8.8 MG/DL (8.5-10.1); CARBON DIOXIDE 33 MMOL/L (21-32); CHLORIDE 99 MMOL/L (98-107); CREATININE 0.8 MG/DL (0.55-1.30); POTASSIUM 3.7 MMOL/L (3.5-5.1); SODIUM 138 MMOL/L (136-145)
--- NOTE | 2018-06-12 14:58 | NUR ---
CASE MANAGEMENT:REVIEW 06/12/18 SI: POD #2 S/P RT HIP NAILING 98.0 76 17 117/79 99% ON RA H/H-11.7/34.3 PLT-149 K-2.5 IS: LOVENOX SQ QD NORVASC PO QD KEPPRA PO QD ULTRAM PO Q6HRS PRN : MED/SURG STATUS 3 EAST
[2018-06-12 16:00] VITALS: BP 119/81
[2018-06-12 20:00] VITALS: BP 101/61
--- NOTE | 2018-06-12 20:09 | NUR ---
NURSE NOTES: Pt is in bed, awake and alert. No acute distress noted. Dressing dry and intact. Pt denies any pain. Bed low in position,side rails up and call light within reach.
--- NOTE | 2018-06-12 20:30 | NUR ---
HAND-OFF: Report given to Rodo RN pt in stable condition.
[2018-06-12] MEDS: Atorvastatin 80mg tab ORAL SCH (20:49)
[2018-06-13] VITALS: BP 115/75
[2018-06-13 04:00] VITALS: BP 105/61
--- NOTE | 2018-06-13 04:51 | NUR ---
NURSE NOTES: Pt is in bed, asleep. No acute distress noted.
[2018-06-13] MEDS: NovoLOG Insulin Flexpen SUBQ SCH ×4 (05:52→21:00)
--- NOTE | 2018-06-13 07:15 | NUR ---
HAND-OFF: Report given to GOLDEN Chavez.
[2018-06-13 08:00] VITALS: BP 140/80
--- NOTE | 2018-06-13 08:00 | NUR ---
NURSE NOTES: Received report from sydnee RN. pt a/a/o x4 laying in bed with no signs of distress or other issues at this time. surgical dressing dry and intact. pt ambulating with staff assistance. IV on the right hand gauge#20 heplock. pt on a CCHO medium diet. pt tolerating well with no n/v. call light within reach. bed in lowest position. side rales up x2. plan: possible d/c home today. I will f/u as needed.
[2018-06-13 08:35] LABS: ANION GAP 9 mmol/L (5-15); BLOOD UREA NITROGEN 19 mg/dL (7-18); CALCIUM 8.7 MG/DL (8.5-10.1); CARBON DIOXIDE 28 MMOL/L (21-32); CHLORIDE 101 MMOL/L (98-107); CREATININE 0.9 MG/DL (0.55-1.30); POTASSIUM 3.1 MMOL/L (3.5-5.1); SODIUM 138 MMOL/L (136-145)
[2018-06-13] MEDS: Enoxaparin 40mg Inj SUBQ SCH (09:28)
--- NOTE | 2018-06-13 10:08 | Nephrology Progress Note ---
Assessment/Plan Assessment/Plan A/P 1. Right hip fracture. S/p ORIF 2. Seizure disorder- Keppra. 3. Hyperlipidemia- Lipitor. 4. Hypertension- Norvasc. 5. History of previous skin grafting for sacral decubitus. DC back to assisted living with Home Health PT/OT Subjective Date patient seen: Jun 13, 2018 Time patient seen: 10:05 ROS Limited/Unobtainable: No Allergies: Coded Allergies: PENICILLINS (Verified Allergy, Unknown, 06/09/18) Subjective Patient feeling better. DC today back to assisted living Objective Last 24 Hour Vital Signs Date Time Temp Pulse Resp B/P (MAP) Pulse Ox O2 Delivery O2 Flow Rate FiO2 06/13/18 09:29 103 140/82 06/13/18 04:00 98.8 73 18 105/61 (76) 96 06/13/18 00:00 98.1 80 18 115/75 (88) 97 06/12/18 21:00 Room Air 06/12/18 20:00 98.8 75 18 101/61 (74) 97 06/12/18 16:00 98.6 79 18 119/81 (94) 99 06/12/18 12:35 68 20 98 06/12/18 12:00 98.0 76 17 117/79 (92) 99 Intake and Output 06/12/18 06/13/18 19:00 07:00 Intake Total 850 ml Output Total 350 ml Balance 850 ml -350 ml Other 850 ml Output Urine Total 350 ml Laboratory Tests 06/12/18 14:10: Sodium Level 138, Potassium Level 3.7, Chloride Level 99, Carbon Dioxide Level 33H, Anion Gap 6, Blood Urea Nitrogen 17, Creatinine 0.8, Estimat Glomerular Filtration Rate > 60, Glucose Level 144H, Calcium Level 8.8 06/13/18 06:26: Sodium Level 138, Potassium Level 3.1L, Chloride Level 101, Carbon Dioxide Level 28, Anion Gap 9, Blood Urea Nitrogen 19H, Creatinine 0.9, Estimat Glomerular Filtration Rate > 60, Glucose Level 110H, Calcium Level 8.7 Height (Feet): 5 Height (Inches): 7.00 Weight (Pounds): 130 General Appearance: no apparent distress, alert EENT: normal ENT inspection Neck: normal alignment, supple Cardiovascular: normal rate, regular rhythm Respiratory/Chest: lungs clear, normal breath sounds Abdomen: non tender, soft Edema: no edema noted Arm (L), no edema noted Arm (R), no edema noted Leg (L), no edema noted Leg (R), no edema noted Pedal (L), no edema noted Pedal (R), no edema noted Generalized Daniel Mackey MD Jun 13, 2018 10:08
--- NOTE | 2018-06-13 10:13 | Discharge Instructions ---
Discharge Instructions Discharge Instructions Services at Discharge: day care Diet: 2 GM sodium (low sodium) Resume Normal Activity?: No Activity: as tolerated Follow Up Orders DC to assisted living and Home Health For Congestive Heart Failure Reminder Report to your physician any weight gain of 5 pounds or more in one week. Daniel Mackey MD Jun 13, 2018 10:13
--- NOTE | 2018-06-13 11:00 | NUR ---
NURSE NOTES: Received report dc order. RN notify CM to please arrange home health for PT. per Brian RUDD pts doesn't have insurance and since pt has a low income he will not be able to pay out pocket. Per physical therapy rec pt will needed a FWW upon d/c. RN will deliver to pt's room prior to d/c. I will f/u as needed. I will f/u as needed.
[2018-06-13 12:00] VITALS: BP 100/62
--- NOTE | 2018-06-13 14:00 | NUR ---
NURSE NOTES: Per Physical therapy pt is clear for home. RN notified Sonam RUDD that pt is cleared by PT stand point. PT also trained patient with stairs. RN delivered standard FWW at pt's room for home use. plan to d/c to previous assisted leaving [facility] I will f/u as needed.
[2018-06-13 16:00] VITALS: BP 93/62
--- NOTE | 2018-06-13 16:08 | General Progress Note ---
Assessment/Plan Problem List: (1) Anxiety disorder ICD Codes: F41.9 - Anxiety disorder, unspecified SNOMED: 520013720 Assessment/Plan the pt has capacity to make decisions. the pt was able to understand and discuss in a rational manner. Subjective Neurologic/Psychiatric: Reports: anxiety, depressed, emotional problems Allergies: Coded Allergies: PENICILLINS (Verified Allergy, Unknown, 06/09/18) Objective Last 24 Hour Vital Signs Date Time Temp Pulse Resp B/P (MAP) Pulse Ox O2 Delivery O2 Flow Rate FiO2 06/13/18 12:00 98.6 82 20 100/62 (75) 97 06/13/18 09:29 103 140/82 06/13/18 09:00 Room Air 06/13/18 08:00 97.8 103 19 140/80 (100) 97 06/13/18 04:00 98.8 73 18 105/61 (76) 96 06/13/18 00:00 98.1 80 18 115/75 (88) 97 06/12/18 21:00 Room Air 06/12/18 20:00 98.8 75 18 101/61 (74) 97 Intake and Output 06/12/18 06/13/18 19:00 07:00 Intake Total 850 ml Output Total 350 ml Balance 850 ml -350 ml Other 850 ml Output Urine Total 350 ml Laboratory Tests 06/13/18 06:26: Sodium Level 138, Potassium Level 3.1L, Chloride Level 101, Carbon Dioxide Level 28, Anion Gap 9, Blood Urea Nitrogen 19H, Creatinine 0.9, Estimat Glomerular Filtration Rate > 60, Glucose Level 110H, Calcium Level 8.7 Height (Feet): 5 Height (Inches): 7.00 Weight (Pounds): 130 General Appearance: WD/WN, no apparent distress, alert Neurologic: oriented x 3, responsive, depressed affect Homar Burton MD Jun 13, 2018 16:08
--- NOTE | 2018-06-13 20:00 | NUR ---
NURSE NOTES: Received pt in bed. AOx4. Denies pain/discomfort at this time. No acute distress. VS WNL. Call Button in reach.
--- NOTE | 2018-06-13 20:22 | NUR ---
HAND-OFF: Report given to Nicholas Coy RN. pt in stable condition. RN endorsed to incoming nurse that pt's plan is to go back tomorrow to his previous place [facility] please contact facility to ensure room, pt will also need transportation. Please f/u. Thank you.
[2018-06-13] MEDS: Atorvastatin 80mg tab ORAL SCH (21:03)
[2018-06-14] VITALS: BP 100/64
[2018-06-14 04:00] VITALS: BP 117/76
[2018-06-14] MEDS: NovoLOG Insulin Flexpen SUBQ SCH ×2 (06:30→11:30)
--- NOTE | 2018-06-14 07:26 | NUR ---
HAND-OFF: Report given to Ziyad FRANKS.
--- NOTE | 2018-06-14 07:35 | NUR ---
NURSE NOTES: Received report from Nicholas Bennett RN. Rounding done with outgoing nurse. No respiratory distress noted. Patient a/o x4 lying on the bed. Surgical right hip site is dry and intact. IV site patent. Bed in lowest position, call light within reach. Will continue to monitor.
[2018-06-14 08:00] VITALS: BP 106/68
[2018-06-14] MEDS: Enoxaparin 40mg Inj SUBQ SCH (09:03)
--- NOTE | 2018-06-14 10:57 | Pulmonology Progress Note ---
Assessment/Plan Assessment/Plan 1. Right hip fracture. S/p ORIF 2. Seizure disorder. On Keppra. 3. Hyperlipidemia. On Lipitor. 4. Hypertension. On Norvasc. 5. History of previous skin grafting for sacral decubitus. DISCUSSION: s/p surgery. Continue PT/OT DC to SNF DVT prophylaxis replace k Subjective Interval Events: none Constitutional: Reports: no symptoms HEENT: Repors: no symptoms Respiratory: Reports: no symptoms Cardiovascular: Reports: no symptoms Gastrointestinal/Abdominal: Reports: no symptoms Genitourinary: Reports: no symptoms Allergies: Coded Allergies: PENICILLINS (Verified Allergy, Unknown, 06/09/18) Objective Last 24 Hour Vital Signs Date Time Temp Pulse Resp B/P (MAP) Pulse Ox O2 Delivery O2 Flow Rate FiO2 06/14/18 09:00 Room Air 06/14/18 08:49 74 106/68 06/14/18 08:00 97.6 74 18 106/68 (81) 96 06/14/18 04:00 97.7 67 19 117/76 (90) 97 06/14/18 00:00 97.7 82 18 100/64 (76) 98 06/13/18 21:00 Room Air 06/13/18 16:00 99.0 84 19 93/62 (72) 97 06/13/18 12:00 98.6 82 20 100/62 (75) 97 Intake and Output 06/13/18 06/14/18 19:00 07:00 Intake Total 2000 ml Output Total 1400 ml Balance 2000 ml -1400 ml Intake Oral 2000 ml Output Urine Total 1400 ml # Voids 2 General Appearance: no acute distress HEENT: normocephalic Respiratory/Chest: chest wall non-tender, lungs clear Cardiovascular: normal peripheral pulses, normal rate Abdomen: normal bowel sounds Current Medications Medications (Trade) Dose Ordered Sig/Coleen Route PRN Reason Start Time Stop Time Status Last Admin Dose Admin Acetaminophen/ Hydrocodone Bitart ([place] 5/325) 2 tab Q6H PRN ORAL Severe Pain (Pain Scale 7-10) 06/10/18 21:45 06/17/18 21:44 Amlodipine Besylate (Norvasc) 5 mg DAILY ORAL 06/10/18 09:00 07/10/18 08:59 06/13/18 09:29 Atorvastatin Calcium (Lipitor) 80 mg BEDTIME ORAL 06/10/18 21:00 07/10/18 20:59 06/13/18 21:03 Dextrose (Dextrose 50%) 25 ml Q30M PRN IV Hypoglycemia 06/10/18 02:15 07/10/18 02:14 Dextrose (Dextrose 50%) 50 ml Q30M PRN IV Hypoglycemia 06/10/18 02:15 07/10/18 02:14 Enoxaparin Sodium (Lovenox) 40 mg DAILY SUBQ 06/11/18 09:00 07/11/18 08:59 06/14/18 09:03 Hydromorphone HCl (Dilaudid) 2 mg Q3H PRN SUBQ Severe Breakthru Pain (>7) 06/11/18 06:30 06/17/18 21:44 Insulin Aspart (NovoLOG) BEFORE MEALS AND HS SUBQ 06/10/18 06:30 07/10/18 06:29 06/12/18 06:29 Levetiracetam (Keppra) 750 mg DAILY ORAL 06/10/18 09:00 07/10/18 08:59 06/14/18 08:47 Tramadol HCl (Ultram) 50 mg Q6H PRN ORAL For Pain 06/10/18 08:15 06/17/18 02:14 Domenico Thomas MD Jun 14, 2018 10:57
[2018-06-14] MEDS ORDERED: LOVENOX10 M4 SUBQ (11:00)
[2018-06-14 12:00] VITALS: BP 106/66
--- NOTE | 2018-06-14 12:54 | NUR ---
NURSE NOTES: Spoke to kaz Urena regarding Home health order. Home health will be arranged per kaz Urena. Patient can be discharged today. Verified phone number at [facility].
--- NOTE | 2018-06-14 13:15 | NUR ---
CASE MANAGEMENT: DCPNOTE PER MD ORDER PATIENT REFERRED [facility] [phone] [facility] [phone] TOBIN WILL F/U
--- NOTE | 2018-06-14 13:50 | NUR ---
NURSE NOTES: Discharge instruction/written prescription were given to pt. Removed IV line. Taxi voucher was provided. Patient discharged in stable condition.
--- NOTE | 2018-06-15 00:36 | General Progress Note ---
Assessment/Plan Problem List: (1) Anxiety disorder ICD Codes: F41.9 - Anxiety disorder, unspecified SNOMED: 140940105 Assessment/Plan the pt has capacity to make decisions. the pt was able to understand and discuss in a rational manner. Subjective Date patient seen: Jun 14, 2018 Neurologic/Psychiatric: Reports: anxiety, depressed, emotional problems Allergies: Coded Allergies: PENICILLINS (Verified Allergy, Unknown, 06/09/18) Objective Last 24 Hour Vital Signs Date Time Temp Pulse Resp B/P (MAP) Pulse Ox O2 Delivery O2 Flow Rate FiO2 06/14/18 12:00 98.2 73 18 106/66 (79) 98 06/14/18 09:00 Room Air 06/14/18 08:49 74 106/68 06/14/18 08:00 97.6 74 18 106/68 (81) 96 06/14/18 04:00 97.7 67 19 117/76 (90) 97 Height (Feet): 5 Height (Inches): 7.00 Weight (Pounds): 130 General Appearance: WD/WN, no apparent distress, alert Homar Burton MD Jun 15, 2018 00:36
--- NOTE | 2018-06-17 08:08 | Discharge Summary ---
Discharge Summary Discharge Summary _ DATE OF ADMISSION: 06/09/2018 DATE OF DISCHARGE: 06/14/2018 DISCHARGED BY: Dr. Thomas REASON FOR ADMISSION: 62 years old male with past medical history of coronary artery disease with myocardial infarction, chronic encephalopathy, history of sacral decubitus ulcer , status post previous skin grafting, seizure disorder, presented to emergency room status post fall. Patient complained of pain in the right knee. Upon evaluation right hip x-ray revealed acute right intertrochanteric fracture. X-ray of the right knee revealed no obvious acute injury. Right hip CT confirmed acute intertrochanteric fracture of the right hip. CT of the right knee daily was negative for acute injury, but showed evidence of osteoarthritis. CT of the head revealed no acute intracranial bleeding, mass-effect or edema. Noted evidence of chronic small vessel disease, involving white matter tract and moderate atrophy of the brain. Old right zygomatic arch fracture incidentally noted. Laboratory workup revealed no leukocytosis, stable hemoglobin and hematocrit. Potassium 2.5, otherwise stable electrolytes. BUN 33, creatinine 1.2. Glucose 135. Stable coagulation profile. EKG revealed normal sinus rhythm, no acute ischemic changes. Patient was admitted for surgical management of acute right hip fracture. CONSULTANTS: furniture repairer dr.De Morales orthopedic surgery Dr. Ansari psychiatrist [facility] COURSE: Patient admitted to medical surgical floor. Patient was cleared for surgery. Potassium was replaced. Orthopedic surgery consult was requested. Patient subsequently undergone on 06/10 right hip open reduction internal fixation. Course of recovery was uneventful. Pain management provided. DVT prophylaxis provided. Patient was working with physical therapy. Fall precaution maintained. Seizure precaution maintained, Keppra continued. Blood pressure was managed with Norvasc and remained stable. Statin continued. Renal parameters and electrolytes were closely monitored. Electrolytes corrected as needed. Nephrotoxins were avoided. Prior to discharge BUN from initial 33 down to 19, creatinine from 1.2 down to 0.9. Psychiatrist followed. Per psychiatrist, patient had anxiety disorder. Patient had capacity to make informed decision and was able to understand and discuss course of treatment in a rational manner. Patient clinically stabilized and was ready for discharge to assisted living. Home health services arranged prior to discharge FINAL DIAGNOSES: Acute right intertrochanteric hip fracture, secondary to fall Status post open reduction internal fixation right hip fracture Seizure disorder Hyperlipidemia Hypertension History of previous skin grafting for sacral decubitus Hypokalemia Anxiety disorder DISCHARGE MEDICATIONS: See Medication Reconciliation list. DISCHARGE INSTRUCTIONS: Patient was discharged to assisted living with home health services to follow. Follow-up with surgeon as outpatient as advised Follow-up with primary care provider in 1 week. I have been assigned to dictate discharge summary for this account. I was not involved in the patient's management. Freya Hughes NP Jun 17, 2018 08:08
== END 2018-06-14 13:50 | disposition home health service (06) | DRG 482 ==
LOC: EDBD 19:32 → EMR 20:29 → 3E 23:32 → EDBEDREQ 06-10 00:32
PROC: 0QS636Z Reposition Right Upper Femur with Intramedullary Internal Fixation Device, Percutaneous Approach (ICD-10-PCS; principal; 2018-06-10 19:30)
DX: S72.141A Displaced intertrochanteric fracture of right femur, initial encounter for closed fracture (principal); W01.0XXA Fall on same level from slipping, tripping and stumbling without subsequent striking against object, initial encounter; Y92.099 Unspecified place in other non-institutional residence as the place of occurrence of the external cause; Z79.82 Long term (current) use of aspirin; I25.10 Atherosclerotic heart disease of native coronary artery without angina pectoris; I25.2 Old myocardial infarction; E87.6 Hypokalemia; I10 Essential (primary) hypertension; G40.909 Epilepsy, unspecified, not intractable, without status epilepticus; F41.9 Anxiety disorder, unspecified; E78.5 Hyperlipidemia, unspecified; Z88.0 Allergy status to penicillin; Z66 Do not resuscitate
CPT/HCPCS: 36415; 70450; 71045; 72170; 76000; 80048; 80053; 80299; 82962; 85025; 85610; 85730; 87081; 94003; 94150; 99285; J1815; J2250; J8499